=== PATIENT | female | born 1980 | race Caucasian/White ===

== ENCOUNTER → 2022-06-26 | Outpatient (CLI) | payer SELFPAY ==
--- NOTE | 2022-06-26 10:20 | Diagnostic Imaging Report ---
EXAMINATION: CT calcium scoring without contrast. TECHNIQUE: Multiple contiguous axial images were obtained through the chest without the use of intravenous contrast for purposes of calcium scoring. All CT scans use one or more of the following dose optimizing techniques: automated exposure control, MA and/or KvP adjustment based on patient size and exam type or iterative reconstruction. HISTORY: MIXED HYPERLIPIDEMIA COMPARISON: None available. FINDINGS: The calculated coronary artery calcium score is 22.3. There is no edema or pneumonia. No pleural effusion. No pneumothorax. No suspicious nodules. Heart size is normal. No pericardial effusion. Aorta is normal in caliber. There is no mediastinal lymphadenopathy. There are no suspicious osseus lesions. IMPRESSION: 1. Calculated coronary artery calcium score of 22.3, placing the patient above the 90th percentile for age. Dictated by: Dictated on workstation # [id number]
== END ==
LOC: RAD FS 08:10
PROVIDERS: ATTEND Nurse Practitioner Family
DX: E78.2 Mixed hyperlipidemia (principal)
CPT/HCPCS: 75571

== ENCOUNTER → 2022-12-11 | Outpatient (CLI) | payer BC ==
--- NOTE | 2022-12-11 10:13 | Diagnostic Imaging Report ---
CLINICAL INDICATION: Patient with low back pain x 4 weeks now. No known injury. EXAM: MRI of the lumbar spine without contrast. Sequences include sagittal T2, sagittal T1, sagittal T2 fat-sat, and axial T2. COMPARISON: None. FINDINGS: There is no acute lumbar spine fracture or dislocation. There is straightening of the lumbar spine posture. 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 There are Modic type I degenerative signal changes involving the L5-S1 endplates. There is no significant paraspinal soft tissue abnormality. The visualized portions of the distal thoracic spinal cord, conus medullaris, and cauda equina nerve roots are unremarkable. The conus medullaris tip is seen at the upper L2 vertebral body level. L1-L2, L2-L3, L3-L4, and L4-L5: There is no significant disk bulge. There is no significant central canal or neuroforaminal narrowing. L5-S1: There is a mild diffuse disk bulge with superimposed central/right paracentral disk extrusion/herniation. There is mild loss of disk space height. There is mild central canal narrowing. There is encroachment upon the non-exited right S1 nerve root. There is mild right neuroforaminal narrowing. There is no significant central canal or left neuroforaminal narrowing. IMPRESSION: 1: There is an L5-S1 diffuse disk bulge with superimposed posterior/right paracentral disk herniation with encroachment upon the non-exited right S1 nerve root. There is mild central canal narrowing and mild right neuroforaminal narrowing. 2: The remainder of the lumbar spine shows no other significant abnormality. Dictated by: Dictated on workstation # [id number]
== END ==
LOC: RAD 09:00
PROVIDERS: ATTEND Student in an Organized Health Care Education/Training Program
DX: M51.17 Intervertebral disc disorders with radiculopathy, lumbosacral region (principal); M48.07 Spinal stenosis, lumbosacral region
CPT/HCPCS: 72148